=== PATIENT | female | born 1955 | race Two or more races ===

== ENCOUNTER 2025-03-17 19:22 | Emergency (ER) | payer MEDICARE, OTHER ==
[~2025-03-17] VITALS: Ht 162.6 cm; Wt 95.3 kg
[2025-03-17 20:16] LABS: PLATELET COUNT (AUTO) 200 K/uL (150-450); RED BLOOD CELL COUNT(AUTO) 4.36 MIL/uL (4.0-5.2); RED CELL DISTRIBUTION WIDTH 14.3 % (11.5-15.0); WHITE BLOOD COUNT (AUTO) 5.7 K/uL (4.3-11.0)
[2025-03-17 20:27] LABS: APPEARANCE,URINE CLEAR (CLEAR); BLOOD, URINE NEGATIVE Ery/uL (NEGATIVE); LEUKOCYTE ESTERASE ,URINE TRACE (NEGATIVE); NITRITE, URINE NEGATIVE (NEGATIVE); UGLUCOSE NEGATIVE (NEGATIVE)
[2025-03-17 20:45] LABS: ADD URINE CULTURE NO
[2025-03-17 20:46] LABS: ASPARTATE AMINOTRANSFERASE 15 U/L (15-37); CALCIUM, SERUM 8.7 mg/dL (8.5-10.1); CREATININE 0.8 mg/dL (0.6-1.3); SODIUM SERUM 140 mmol/L (136-145); TOTAL PROTEIN, SERUM 6.6 g/dL (6.4-8.2); UREA NITROGEN, BLOOD 21 mg/dL (7-18)
[2025-03-17] MEDS ORDERED: AMOX-430 PO (21:19)
[2025-03-17] MEDS ORDERED: AMOX/CLAVULANATE 875 MG TABLET ONE (21:28)
[2025-03-17] MEDS: AMOX/CLAVULANATE 875 MG TABLET PO ONE (21:29)
[2025-03-17 21:49] VITALS: BP 132/80; TEMP 98.6; O2SAT 98
== END 2025-03-17 21:49 | disposition home or self-care (01) ==
LOC: ER 19:32
DX: K52.9 Noninfective gastroenteritis and colitis, unspecified (principal)
CPT/HCPCS: 36415; 80048-TC; 80076-TC; 81001; 83690-TC; 84484-TC; 85025-TC; 87086-TC